=== PATIENT | male | born 1980 | race Caucasian/White ===

== ENCOUNTER 2019-09-12 03:20 | Inpatient (IN) | payer MEDICAID ==
[~2019-09-12] VITALS: Ht 182.9 cm; Wt 75.3 kg
[2019-09-12] MEDS ORDERED: SODIUM CHLORIDE 0.9% 1,000 ML IV ONE (03:21)
[2019-09-12] MEDS ORDERED: ACETAMINOPHEN 500 MG TABLET ONE (03:22)
[2019-09-12] MEDS ORDERED: ACETAMINOPHEN 325 MG TABLET PO ONE (03:30)
[2019-09-12] MEDS ORDERED: PLEASE ENTER ALLERGIES MC SCH (03:30)
--- NOTE | 2019-09-12 03:46 | NUR ---
THIS IS A 39Y M THAT COMES IN A TRANSFER FROM [facility] IN [place]. PT PRESENTED THERE WITH C/O FEVER X3WKS WITH COUGH AND SOB. PT HAS HX OF AIDS AND RECENTLY BEGAN TAKING HIS MEDICATIONS AGAIN. PT RESTING ON [employer] App NADN, CONNECTED TO ALL MONITORING VSS, FEVER NOTED ERP AWARE THUSLY PT MEDICATED.
[2019-09-12] MEDS ORDERED: ACETAMINOPHEN 500 MG TABLET PO ONE (04:00)
[2019-09-12] MEDS ORDERED: SULFAMETH./TRIMETHOPRIM 5 ML in DEXTROSE 5% 250 ML IV SCH (04:00)
[2019-09-12] MEDS ORDERED: SULFAMETH./TRIMETHOPRIM 5 ML in DEXTROSE 5% 250 ML IV ONE (04:00)
[2019-09-12 04:01] LABS: MEAN CORPUSCULAR HEMOGLOBIN 32.1 pg (27.5-34.5); MEAN CORPUSCULAR HGB CONC 33.9 g/dL (33.2-36.2); MEAN CORPUSCULAR VOLUME 94.6 fL (81-97); MEAN PLATELET VOLUME 8.6 fL (7.4-10.4); PLATELET COUNT 234 x10^3/uL (130-400); RED BLOOD COUNT 3.69 x10^6/uL (4.38-5.82); RED CELL DISTRIBUTION WIDTH 13.1 % (9.4-14.8)
[2019-09-12 04:05] LABS: ALANINE AMINOTRANSFERASE 89 U/L (12-78); ALBUMIN 2.1 g/dL (3.4-5.0); ANION GAP 8 mmol/L (5-15); CALCIUM 8.4 mg/dL (8.5-10.1); CHLORIDE 102 mmol/L (98-107); CREATININE 1.13 mg/dL (0.7-1.3)
[2019-09-12 04:07] LABS: ALKALINE PHOSPHATASE 142 U/L (45-117); BILIRUBIN,TOTAL 0.4 mg/dL (0.2-1.0); TOTAL PROTEIN 7.3 g/dL (6.4-8.2)
[2019-09-12 04:09] LABS: MD YES
[2019-09-12 04:17] LABS: BAND#(MANUAL) 0.17 x10^3/uL; BANDS%(MANUAL) 3 % (0-7); EOS#(MANUAL) 0.28 x10^3/uL (0.0-0.4); EOS% (MANUAL) 5 % (1-7); LYMPH#(MANUAL) 0.39 x10^3/uL (1-3.4); LYMPHS% (MANUAL) 7 % (22-44); METAMYELOCYTES# (MANUAL) 0.06 x10^3/uL (0-0); METAMYELOCYTES% (MANUAL) 1 % (0-1); MONOS#(MANUAL) 0.28 x10^3/uL (0.3-2.7); MONOS% (MANUAL) 5 % (2-9); SEG#(MANUAL) 4.42 x10^3/uL (1.8-6.8); SEGS% (MANUAL) 79 % (42-75)
[2019-09-12 04:18] LABS: <PLATELET ESTIMATE> ADEQUATE; <PLT MORPHOLOGY> NORMAL PLT MORPH; ANISOCYTOSIS 1+; PMNS WITH VACUOLES 1+
[2019-09-12] MEDS ORDERED: PROMETHAZINE 25 MG/ML, 1ML IM PRN (04:30)
[2019-09-12] MEDS ORDERED: ONDANSETRON ODT 4 MG PO PRN (04:30)
[2019-09-12] MEDS ORDERED: ONDANSETRON 2MG/ML, 2ML IVPush PRN (04:30)
[2019-09-12] MEDS ORDERED: BISACODYL 10 MG SUPP PR PRN (04:30)
[2019-09-12] MEDS ORDERED: POLYETHYLENE GLYCOL 17 GM PACKET PO PRN (04:30)
[2019-09-12] MEDS ORDERED: DOCUSATE 100 MG CAPSULE PO PRN (04:30)
[2019-09-12] MEDS ORDERED: morphine SULFATE 10 MG/ML, 1ML IVPush PRN (04:30)
[2019-09-12] MEDS ORDERED: hydrALAzine 20 MG/ML, 1ML IVPush PRN (04:30)
[2019-09-12] MEDS ORDERED: OXYcodone IR 5MG TABLET PO PRN (04:30)
[2019-09-12 04:32] LABS: HCT (SEDRATE) 34.9 % (39.2-51.8)
--- NOTE | 2019-09-12 04:55 | NUR ---
Pt very diaphoretic and IV became dislodged. Fluids stopped.
[2019-09-12 05:43] LABS: FREE T4 (FREE THYROXINE) 1.08 ng/dL (0.76-1.46)
--- NOTE | 2019-09-12 06:55 | NUR ---
REPORT FROM JULISSA
--- NOTE | 2019-09-12 07:24 | NUR ---
HOSPTIAL BED ORDERED, MEAL TRAY ORDERED. PT RESTING.
[2019-09-12] MEDS ORDERED: PLEASE ENTER HEIGHT AND WEIGHT MC SCH (07:30)
[2019-09-12] MEDS ORDERED: ENOXAPARIN 40 MG/0.4 ML ONE (08:06)
[2019-09-12] MEDS ORDERED: SULFAMETH./TRIMETHOPRIM DS 800MG/160MG TABLET ONE (08:07)
[2019-09-12] MEDS: SULFAMETH./TRIMETHOPRIM DS 800MG/160MG TABLET PO SCH (08:16)
[2019-09-12] MEDS: ENOXAPARIN 40 MG/0.4 ML SQ SCH (08:16)
[2019-09-12] MEDS ORDERED: BICT1TAB PO (08:17)
--- NOTE | 2019-09-12 08:25 | NUR ---
GIVEN MEAL TRAY, MEDICATED PER ORDERS. PT ON HOSPITAL BED AND GIVEN WARM BLANKETS
[2019-09-12] MEDS: FLUCONAZOLE 100MG/50ML 100 MG in BAG 1 EACH IV SCH (09:54)
[2019-09-12] MEDS ORDERED: CEFTRIAXONE PMX 2GM/50ML 50 ML IV SCH (11:00)
[2019-09-12] MEDS ORDERED: SODIUM CHLORIDE 0.9% 1,000 ML IV SCH (11:00)
[2019-09-12 13:44] VITALS: BP 107/64
[2019-09-12 19:05] VITALS: BP 94/61
[2019-09-12] MEDS: ACETAMINOPHEN 325 MG TABLET PO PRN (19:26)
[2019-09-12] MEDS ORDERED: AZITHROMYCIN 500 MG in SODIUM CHLORIDE 0.9% 250 ML IV SCH (23:00)
[2019-09-13] MEDS ORDERED: GUAIFENESIN/DM 200-20MG, 10ML UDC PO PRN (01:00)
[2019-09-13] MEDS ORDERED: DIPHENHYDRAMINE 50 MG CAPSULE PO PRN (01:00)
[2019-09-13] MEDS ORDERED: MELATONIN 5 MG TABLET PO SCH (01:00)
[2019-09-13 01:07] VITALS: BP 99/67
[2019-09-13 05:36] LABS: MEAN CORPUSCULAR HEMOGLOBIN 31.5 pg (27.5-34.5); MEAN CORPUSCULAR HGB CONC 32.5 g/dL (33.2-36.2); MEAN CORPUSCULAR VOLUME 96.8 fL (81-97); MEAN PLATELET VOLUME 8.5 fL (7.4-10.4); PLATELET COUNT 225 x10^3/uL (130-400); RED BLOOD COUNT 3.61 x10^6/uL (4.38-5.82); RED CELL DISTRIBUTION WIDTH 13.3 % (9.4-14.8)
[2019-09-13 05:51] LABS: ALANINE AMINOTRANSFERASE 99 U/L (12-78); ALBUMIN 1.9 g/dL (3.4-5.0); ANION GAP 7 mmol/L (5-15); CALCIUM 8.4 mg/dL (8.5-10.1); CHLORIDE 107 mmol/L (98-107); CREATININE 0.98 mg/dL (0.7-1.3)
[2019-09-13 05:54] LABS: ALKALINE PHOSPHATASE 186 U/L (45-117); BILIRUBIN,TOTAL 0.4 mg/dL (0.2-1.0); CHOL/HDL RATIO 5.7; CHOLESTEROL, TOTAL 63 mg/dL (140-239); HDL CHOL % 17 % (26-37); HDL CHOLESTEROL (DIRECT) 11 mg/dL (40-60); LDL CHOLESTEROL,CALCULATED 34 mg/dL (54-169); LDL/HDL RATIO 3.1 (0.5-3.0); TOTAL PROTEIN 6.7 g/dL (6.4-8.2); TRIGLYCERIDES 92 mg/dL (50-200); VLDL CHOLESTEROL 18 mg/dL (0-25)
[2019-09-13] MEDS: ENOXAPARIN 40 MG/0.4 ML SQ SCH (05:59)
[2019-09-13 06:17] LABS: BASOPHILS % (AUTO) 0 % (0-1); EOSINOPHILS % (AUTO) 5 % (1-7); LYMPHOCYTES # (AUTO) 0.31 x10^3/uL (1-3.4); LYMPHOCYTES % (AUTO) 5 % (22-44); MD SCAN; MONOCYTES # (AUTO) 0.26 x10^3/uL (0.2-0.8); MONOCYTES % (AUTO) 4 % (2-9); NEUTROPHILS # (AUTO) 5.56 x10^3/uL (1.8-6.8); NEUTROPHILS % (AUTO) 86 % (42-75)
[2019-09-13 07:57] VITALS: BP 117/65
[2019-09-13] MEDS: SULFAMETH./TRIMETHOPRIM DS 800MG/160MG TABLET PO SCH (08:16)
[2019-09-13] MEDS: ACETAMINOPHEN 325 MG TABLET PO PRN (08:16)
[2019-09-13] MEDS: FLUCONAZOLE 100MG/50ML 100 MG in BAG 1 EACH IV SCH (08:16)
== END 2019-09-13 11:08 | disposition left against medical advice (07) | DRG 890 ==
LOC: ED 03:50 → 3N 10:45 → ED 21:17 → 3N 21:19
PROVIDERS: ADMIT Internal Medicine; ATTEND Internal Medicine
DX: B20 Human immunodeficiency virus [HIV] disease (principal); A41.9 Sepsis, unspecified organism; J15.9 Unspecified bacterial pneumonia; Z88.0 Allergy status to penicillin; B59 Pneumocystosis; D64.9 Anemia, unspecified; E86.0 Dehydration; E87.1 Hypo-osmolality and hyponatremia; F12.90 Cannabis use, unspecified, uncomplicated; R09.02 Hypoxemia; R13.10 Dysphagia, unspecified; Z87.891 Personal history of nicotine dependence; Z53.29 Procedure and treatment not carried out because of patient's decision for other reasons
CPT/HCPCS: 36415; 71045; 80053; 80061; 83036; 83605; 83615; 83735; 84145; 84439; 84443; 85025; 85651; 86140; 86361; 86704; 86705; 86706; 86708; 86709; 86803; 87040; 87340; 87806; 93005; G0378; J0456; J0696; J1650; J7060; G0475; J1450; J7030; J7050